=== PATIENT | male | born 1980 | race Two or more races ===

== ENCOUNTER 2023-11-06 15:23 | Emergency (ER) | payer OTHER ==
[~2023-11-06] VITALS: Ht 170.2 cm; Wt 72.6 kg
[2023-11-06] MEDS ORDERED: LIDOCAINE HCL/MPF 1% 2ML AMPUL IJ ONE (17:30)
== END 2023-11-06 17:51 | disposition home or self-care (01) ==
LOC: ER 15:24
DX: S61.411A Laceration without foreign body of right hand, initial encounter (principal); V00.131A Fall from skateboard, initial encounter; Y93.89 Activity, other specified; Y92.89 Other specified places as the place of occurrence of the external cause; Y99.9 Unspecified external cause status